=== PATIENT | male | born 1955 | race Caucasian/White ===

== ENCOUNTER → 2016-09-15 | Outpatient (CLI) | payer OTHER ==
[~2016-09-15] MED LIST: ASA325 MG PO; COLACE-DPS100 MG PO; LIPITOR40 MG PO; MIRALAX PACKET17 GM PO; NORCO 5-325 TA1 EACH PO; OXY IR DPS5 MG PO; PROTONIX40 MG PO; SENOKOT S1 TAB PO; ULTRAM DPS50 MG PO
--- NOTE | 2016-09-19 09:28 | OR ---
ADMIT: 09/15/2016 RM/LOC: [facility] MR#: [id number] [id number] [facility] [address] [place] [id number] BRIA YOUNGER [address] [place] [address] Operative/Delivery Room Report SEX: M AGE: 61 : 1955 SURGERY DATE: 09/15/2016 SURGEON: Daryl Vernon MD PREOPERATIVE DIAGNOSIS: Right hip arthritis. POSTOPERATIVE DIAGNOSIS: Right hip arthritis. PROCEDURE: Right hip fluoroscopic-guided hip injection. INDICATION: Mr. Younger has got [id number] arthritis in the right hip. We will go ahead and schedule him for hip replacement as he has done some home exercise and he has done an anti-inflammatories and activity modification. He has got decreased motion in that hip for quite some time and he wanted to get it fixed and this is a convenient time for him to do that. The insurance company did not want us to proceed with that yet, they felt we had not done enough conservative management so we went ahead and scheduled him for an injection and he is here for that today. DESCRIPTION OF PROCEDURE: He is identified. Consent was signed. We went ahead and did our time out and then the needle was identified over the hip joint and introduced into the hip joint. Then I injected a solution of 8 mL of lidocaine and 2 mL of Kenalog 40 mg per ML and then put a Band-Aid on. He tolerated it very well and I will see him back in six weeks to see how much relief he got from this. Daryl Vernon MD/ vdg JOB #: [id number] CC: Daryl Vernon, Attending Physician Armani Jc, Family Physician
== END | disposition home or self-care (01) ==
LOC: RAD.S 09:41
PROC: 0S993ZZ Drainage of Right Hip Joint, Percutaneous Approach (ICD-10-PCS; principal; 2016-09-15)
DX: M25.551 Pain in right hip (principal)

== ENCOUNTER → 2016-10-28 | Outpatient (CLI) | payer OTHER | END | disposition home or self-care (01) | LOC: PTH.S 08:00 | DX: Z01.818 Encounter for other preprocedural examination (principal) ==

== ENCOUNTER 2016-11-03 05:48 | Inpatient (IN) | payer OTHER ==
[2016-11-06] MEDS ORDERED: ASA325 MG PO (19:34)
[2016-11-06] MEDS ORDERED: ULTRAM DPS50 MG PO (19:34)
[2016-11-06] MEDS ORDERED: LIPITOR40 MG PO (19:34)
[2016-11-06] MEDS ORDERED: SENOKOT S1 TAB PO (19:35)
[2016-11-06] MEDS ORDERED: COLACE-DPS100 MG PO (19:35)
[2016-11-06] MEDS ORDERED: PROTONIX40 MG PO (19:35)
[2016-11-06] MEDS ORDERED: MIRALAX PACKET17 GM PO (19:35)
[2016-11-06] MEDS ORDERED: OXY IR DPS5 MG PO (19:36)
[2016-11-06] MEDS ORDERED: NORCO 5-325 TA1 EACH PO (19:36)
== END 2016-11-05 14:48 | disposition home or self-care (01) | DRG 470 ==
DX: M16.11 Unilateral primary osteoarthritis, right hip (principal); E66.9 Obesity, unspecified; D62 Acute posthemorrhagic anemia; E78.5 Hyperlipidemia, unspecified; M25.852 Other specified joint disorders, left hip; Z87.891 Personal history of nicotine dependence; Z79.82 Long term (current) use of aspirin; Z68.39 Body mass index [BMI] 39.0-39.9, adult